=== PATIENT | male | born 2000 | race African-American/Black ===

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

== ENCOUNTER 2020-08-13 14:07 | Emergency (ER) | payer MEDICAID ==
[2020-08-13 14:14] VITALS: BP 126/64
--- NOTE | 2020-08-13 14:36 | ER Document Report ---
HPI - HPI Patient complains to provider of: Sinus congestion Time Seen by Provider: 08/13/20 14:29 Pain Level: 3 Context: 19-year-old male with a past medical history significant for seasonal allergies presents to the emergency room complaining of nasal congestion for the past 3 to 4 days. States he normally takes Zyrtec for his allergies but has run out of medication. Today woke up with a generalized headache. No nausea, no vomiting, no fevers. No head trauma head injury. No sudden thunderclap. Not worst headache of his life. No history of migraines. Did not take any medications for his symptoms. Rates his pain at 2 out of 5 Associated Symptoms: None Exacerbated by: Denies Relieved by: Denies Similar symptoms previously: No Recently seen / treated by doctor: No - ROS Systems Reviewed and Negative: Yes All other systems reviewed and negative - EENT EENT: REPORTS: Congestion. DENIES: Sore Throat, Nasal Drainage-Clear, Nasal Drainage-Purulent - NEURO Neurology: REPORTS: Headache. DENIES: Weakness, Vision blurred, Dizzinesss / Vertigo - CARDIOVASCULAR Cardiovascular: DENIES: Chest pain - RESPIRATORY Respiratory: DENIES: Trouble Breathing, Coughing - DERM Skin Color: Normal Skin Problems: None Past Medical History - General Information source: Patient - Social History Smoking Status: Never Smoker Frequency of alcohol use: None Drug Abuse: None Family History: Reviewed & Not Pertinent Pulmonary Medical History: Reports: Hx Asthma Renal/ Medical History: Denies: Hx Peritoneal Dialysis - Immunizations Immunizations up to date: Yes Hx Diphtheria, Pertussis, Tetanus Vaccination: Yes Vertical Provider Document - CONSTITUTIONAL Agree With Documented VS: Yes Exam Limitations: No Limitations General Appearance: Mild Distress - INFECTION CONTROL TRAVEL OUTSIDE OF THE [place] IN LAST 30 DAYS: No - HEENT HEENT: Atraumatic, Normocephalic. negative: Pharyngeal Exudate, Pharyngeal Tenderness, Pharyngeal Erythema, Tympanic Membrane Red, Tympanic Membrane Bulging Notes: Clear nasal drainage noted bilaterally. Bilateral tympanic membranes retracted with clear fluid noted behind the TMs. Bilateral outer ear canals without erythema or swelling. Sinuses are nontender to palpation. - NECK Neck: Normal Inspection, Supple. negative: Lymphadenopathy-Left, Lymphadenopathy-Right - RESPIRATORY Respiratory: Breath Sounds Normal, No Respiratory Distress - CARDIOVASCULAR Cardiovascular: Regular Rate, Regular Rhythm, No Murmur - MUSCULOSKELETAL/EXTREMETIES Musculoskeletal/Extremeties: FROM - NEURO Level of Consciousness: Awake, Alert, Appropriate Motor/Sensory: No Motor Deficit, No Sensory Deficit - DERM Integumentary: Warm, Dry, No Rash Course - Re-evaluation Re-evalutation: 08/13/20 14:33 Reviewed diagnosis with patient. Counseled on viral illness. Counseled to use nasal spray as prescribed. Follow-up with a primary care physician if not improving in 2 to 3 days. On-call physician was provided. Patient was given strict return to the emergency room guidelines. Return for any new or worsening symptoms. All questions were answered. Patient verbalized understanding and agrees with plan of care. 08/13/20 16:07 - Vital Signs Vital signs: Temp Pulse Resp BP Pulse Ox 98.5 F 81 15 126/64 H 98 08/13/20 14:13 08/13/20 14:13 08/13/20 14:13 08/13/20 14:13 08/13/20 14:13 - Laboratory Results Critical Laboratory Results Reviewed: No Critical Results - Radiology Results Critical Radiology Results Reviewed: No Critical Results Discharge - Discharge Clinical Impression: Nasal congestion URI (upper respiratory infection) Qualifiers: URI type: unspecified URI Qualified Code(s): J06.9 - Acute upper respiratory infection, unspecified Condition: Stable Disposition: HOME, SELF-CARE Instructions: Nasal Sprays and Drops ([facility]), Upper Respiratory Illness ([facility]) Additional Instructions: Use nasal spray as prescribed. Follow-up with a primary care physician if not improving in 2 to 3 days. Return to emergency room for any new or worsening symptoms. Prescriptions: Fluticasone Propionate [Flonase Nasal [place] 50 Mcg/[place] 16 gm] 2 spray NASL DAILY 10 Days #1 inhaler Forms: Return to Work Referrals: CARLIE MANUEL MD [ACTIVE STAFF] - Follow up as needed REBECA MACK MD [COMMUNITY BASED STAFF] - Follow up as needed
== END 2020-08-13 14:42 | disposition home or self-care (01) ==
LOC: ER 14:07
DX: J06.9 Acute upper respiratory infection, unspecified (principal); R09.81 Nasal congestion; R51.9 Headache, unspecified
CPT/HCPCS: 99283